=== PATIENT | male | born 1970 | race Caucasian/White ===

== ENCOUNTER 2018-12-08 15:54 | Emergency (ER) | payer SELFPAY ==
[2018-12-08] MEDS ORDERED: CEPHALEXIN 250 MG CAP ONE (18:04)
--- NOTE | 2018-12-08 18:22 | RAD REPORT ---
EXAM DESCRIPTION: CT - Head C Spine Mpr Wo Con - 12/08/2018 5:57 pm CLINICAL HISTORY: Headache, neck pain COMPARISON: None. TECHNIQUE: Computed axial tomography of the head and cervical spine was obtained. Sagittal and coronal reconstruction was performed. All CT scans are performed using dose optimization technique as appropriate and may include automated exposure control or mA/KV adjustment according to patient size. FINDINGS: An intracranial bleed is not seen. The ventricles are normal in caliber. An extra-axial fl uid collection is not noted.Fluid within the visualized sinuses and mastoids is not seen A cervical fracture is not visualized. No dislocation is noted. Congenital fusion C2 and C3. Scoliosis involves the spine. Spinal stenosis is not visualized. IMPRESSION: No acute intracranial abnormality is seen. A cervical fracture is not visualized. If the patient continues to have symptoms to suggest intracra nial /spinal cord/ spinal canal pathology then MRI would be recommended
--- NOTE | 2018-12-08 18:32 | ER ---
Nurse's Notes [facility] Name: Oren Norwood Age: 47 yrs Sex: Male : 1970 Arrival Date: 12/08/2018 Time: 15:58 Bed 26 Private MD: Diagnosis: Dental caries;Headache Presentation: 12/08 16:07 Presenting complaint: Patient states: laisha ear pain, neck pain x 1 week. Transition of sv care: patient was not received from another setting of care. Onset of symptoms was December 01, 2018. Care prior to arrival: None. 16:07 Method Of Arrival: Ambulatory sv 16:07 Acuity: FAVIAN 4 sv 18:20 Risk Assessment: Do you want to hurt yourself or someone else? Patient reports no mg2 desire to harm self or others. Initial Sepsis Screen: Does the patient meet any 2 criteria? No. Patient's initial sepsis screen is negative. Does the patient have a suspected source of infection? No. Patient's initial sepsis screen is negative. Triage Assessment: 16:10 General: Appears in no apparent distress. uncomfortable, Behavior is calm, cooperative, sv appropriate for age. Pain: Complains of pain in back of neck, right ear and left ear. EENT: Reports pain in left ear and right ear. Neuro: Level of Consciousness is awake, alert, obeys commands, Oriented to person, place, time, situation, Gait is steady. Respiratory: Respiratory effort is even, unlabored, Respiratory pattern is regular, symmetrical. Historical: - Allergies: 16:08 No Known Allergies; sv - PMHx: 16:08 None; sv - PSHx: 16:08 Hernia repair; sv - Immunization history:: Flu vaccine status is unknown. - Family history:: not pertinent. - Social history:: Smoking status: unknown. - Ebola Screening: : No symptoms or risks identified at this time. Screenin:34 Abuse screen: Denies threats or abuse. Denies injuries from another. Nutritional mg2 screening: No deficits noted. Tuberculosis screening: No symptoms or risk factors identified. Fall Risk None identified. Assessment: 18:19 General: Appears in no apparent distress. comfortable, Behavior is calm, cooperative. mg2 Pain: Complains of pain in left ear and right ear and back of neck Pain does not radiate. Pain currently is 2 out of 10 on a pain scale. Quality of pain is described as aching, Pain began gradually, Is intermittent. Neuro: Level of Consciousness is awake, alert, obeys commands, Oriented to person, place, time, situation. Cardiovascular: Capillary refill < 3 seconds Patient's skin is warm and dry. Respiratory: Airway is patent Respiratory effort is even, unlabored, Respiratory pattern is regular, symmetrical. GI: No signs and/or symptoms were reported involving the gastrointestinal system. : No signs and/or symptoms were reported regarding the genitourinary system. EENT: Reports pain in left ear and right ear. Derm: Skin is intact, is healthy with good turgor, Skin is pink, warm \T\ dry. normal. Musculoskeletal: Reports pain in back of neck. 18:41 Reassessment: Patient appears in no apparent distress at this time. Patient is alert, ca1 oriented x 3, equal unlabored respirations, skin warm/dry/pink. Vital Signs: 16:08 BP 101 / 68; Pulse 60; Resp 18; Temp 98.3; Pulse Ox 100% ; Height 5 ft. 9 in. (175.26 sv cm); 18:22 BP 109 / 66; Pulse 59; Resp 17; Pulse Ox 100% on R/A; Pain 2/10; mg2 ED Course: 15:58 Patient arrived in ED. rg4 16:08 Triage completed. sv 16:10 Arm band placed on. sv 17:33 Kartik Grissom, RN is Primary Nurse. mg2 17:34 No provider procedures requiring assistance completed. mg2 17:36 Bari Ray MD is Attending Physician. giovani 17:[address] 2 17:[address] completed. Patient tolerated procedure well. Patient moved back from CT. nj 17:57 CT Head C Spine In Process Unspecified. EDMS 18:22 Patient has correct armband on for positive identification. Door closed. mg2 18:41 Patient did not have IV access during this emergency room visit. ca1 Administered Medications: 18:14 Drug: KeFLEX 500 mg Route: PO; mg2 18:40 Follow up: Response: No adverse reaction ca1 Outcome: 18:31 Discharge ordered by . giovani 18:41 Discharged to home ambulatory. ca1 18:41 Condition: stable 18:41 Discharge instructions given to patient, Instructed on discharge instructions, follow up and referral plans. medication usage, Demonstrated understanding of instructions, follow-up care, medications, Prescriptions given X 2. 18:42 Patient left the ED. ca1 Signatures: Dispatcher [employer] EDNiki Tijerina RN RN Bari Underwood MD MD cha Garcia, Rubi 4 Pantera Castaneda Victoria 2 Kartik Grissom RN RN mg2 Radha Franco RN RN ca1 Corrections: (The following items were deleted from the chart) 16:10 16:08 Pulse 60bpm; Resp 18bpm; Pulse Ox 100%; Temp 98.3F; Height 5 ft. 9 in.; sv
--- NOTE | 2018-12-08 18:33 | EDPHYS ---
Physician Documentation [facility] Name: Oren Norwood Age: 47 yrs Sex: Male : 1970 Arrival Date: 12/08/2018 Time: 15:58 Bed 26 Private MD: ED Physician Bari Ray HPI: 12/08 17:46 This 47 yrs old Male presents to ER via Ambulatory with complaints of Ear giovani Pain, Neck Pain, <24hrs Old. 17:46 The patient presents with a fullness. The complaints affect the forehead, right sikh giovani and left sikh. Onset: The symptoms/episode began/occurred 3 day(s) ago. Modifying factors: The symptoms are alleviated by nothing, the symptoms are aggravated by nothing. Associated signs and symptoms: The patient has no apparent associated signs or symptoms. Severity of symptoms: At their worst the symptoms were moderate. The patient has not experienced similar symptoms in the past. Historical: - Allergies: 16:08 No Known Allergies; sv - PMHx: 16:08 None; sv - PSHx: 16:08 Hernia repair; sv - Immunization history:: Flu vaccine status is unknown. - Family history:: not pertinent. - Social history:: Smoking status: unknown. - Ebola Screening: : No symptoms or risks identified at this time. ROS: 17:46 Constitutional: Negative for fever, chills, and weight loss, Eyes: Negative for injury, giovani pain, redness, and discharge, Neck: Negative for injury, pain, and swelling, Cardiovascular: Negative for chest pain, palpitations, and edema, Respiratory: Negative for shortness of breath, cough, wheezing, and pleuritic chest pain, Abdomen/GI: Negative for abdominal pain, nausea, vomiting, diarrhea, and constipation, Back: Negative for injury and pain, : Negative for injury, bleeding, discharge, and swelling, MS/Extremity: Negative for injury and deformity, Skin: Negative for injury, rash, and discoloration, Neuro: Negative for headache, weakness, numbness, tingling, and seizure, Psych: Negative for depression, anxiety, suicide ideation, homicidal ideation, and hallucinations, Allergy/Immunology: Negative for hives, rash, and allergies, Endocrine: Negative for neck swelling, polydipsia, polyuria, polyphagia, and marked weight changes, Hematologic/Lymphatic: Negative for swollen nodes, abnormal bleeding, and unusual bruising. 17:46 ENT: Positive for dental pain, ear pain. Exam: 17:46 Constitutional: This is a well developed, well nourished patient who is awake, alert, giovani and in no acute distress. Head/Face: Normocephalic, atraumatic. Eyes: Pupils equal round and reactive to light, extra-ocular motions intact. Lids and lashes normal. Conjunctiva and sclera are non-icteric and not injected. Cornea within normal limits. Periorbital areas with no swelling, redness, or edema. Neck: Trachea midline, no thyromegaly or masses palpated, and no cervical lymphadenopathy. Supple, full range of motion without nuchal rigidity, or vertebral point tenderness. No Meningismus. Chest/axilla: Normal chest wall appearance and motion. Nontender with no deformity. No lesions are appreciated. Cardiovascular: Regular rate and rhythm with a normal S1 and S2. No gallops, murmurs, or rubs. Normal PMI, no JVD. No pulse deficits. Respiratory: Lungs have equal breath sounds bilaterally, clear to auscultation and percussion. No rales, rhonchi or wheezes noted. No increased work of breathing, no retractions or nasal flaring. Abdomen/GI: Soft, non-tender, with normal bowel sounds. No distension or tympany. No guarding or rebound. No evidence of tenderness throughout. Back: No spinal tenderness. No costovertebral tenderness. Full range of motion. Male : Normal genitalia with no discharge or lesions. Skin: Warm, dry with normal turgor. Normal color with no rashes, no lesions, and no evidence of cellulitis. MS/ Extremity: Pulses equal, no cyanosis. Neurovascular intact. Full, normal range of motion. Neuro: Awake and alert, GCS 15, oriented to person, place, time, and situation. Cranial nerves II-XII grossly intact. Motor strength 5/5 in all extremities. Sensory grossly intact. Cerebellar exam normal. Normal gait. Psych: Awake, alert, with orientation to person, place and time. Behavior, mood, and affect are within normal limits. 17:46 ENT: Mouth: Oral mucosa: normal, pink and intact, moist, Gums: normal with healthy appearance, Dental exam: dental caries, that is mild, specifically in the upper left second molar (#15). Vital Signs: 16:08 BP 101 / 68; Pulse 60; Resp 18; Temp 98.3; Pulse Ox 100% ; Height 5 ft. 9 in. (175.26 sv cm); 18:22 BP 109 / 66; Pulse 59; Resp 17; Pulse Ox 100% on R/A; Pain 2/10; mg2 MDM: 17:36 Patient medically screened. [facility] 17:48 Data reviewed: vital signs, nurses notes, radiologic studies, CT scan. [facility] 12/08 17:46 Order name: CT Head C Spine [facility] Administered Medications: 18:14 Drug: KeFLEX 500 mg Route: PO; mg2 18:40 Follow up: Response: No adverse reaction ca1 Disposition: 12/08/18 18:31 Discharged to Home. Impression: Dental caries, Headache. - Condition is Stable. - Discharge Instructions: Dental Pain, General Headache Without Cause, Dental Pain, [id number], General Headache Without Cause, [id number]. - Prescriptions for Ibuprofen 600 mg Oral Tablet - take 1 tablet by ORAL route every 8 hours As needed take with food; 21 tablet. Keflex 500 mg Oral Capsule - take 1 capsule by ORAL route every 6 hours for 7 days; 28 capsule. - Medication Reconciliation Form, Thank You Letter, Antibiotic Education, Prescription Opioid Use form. - Follow up: Private Physician; When: 2 - 3 days; Reason: Recheck today's complaints, Continuance of care, Re-evaluation by your physician. - Problem is new. - Symptoms have improved. Signatures: Dispatcher [employer] Niki Curry RN RN Bari Ray MD MD cha Gardose, Michele, RN RN mg2 Radha Franco RN RN ca1 Corrections: (The following items were deleted from the chart) 18:42 18:31 12/08/2018 18:31 Discharged to Home. Impression: Dental caries; Headache. ca1 Condition is Stable. Discharge Instructions: Dental Pain, General Headache Without Cause, Dental Pain, [id number], General Headache Without Cause, [id number]. Prescriptions for Ibuprofen 600 mg Oral Tablet - take 1 tablet by ORAL route every 8 hours As needed take with food; 21 tablet, Keflex 500 mg Oral Capsule - take 1 capsule by ORAL route every 6 hours for 7 days; 28 capsule. and Forms are Medication Reconciliation Form, Thank You Letter, Antibiotic Education, Prescription Opioid Use. Follow up: Private Physician; When: 2 - 3 days; Reason: Recheck today's complaints, Continuance of care, Re-evaluation by your physician. Problem is new. Symptoms have improved. giovani
== END 2018-12-08 18:42 | disposition home or self-care (01) ==
LOC: ER 15:54
DX: K02.9 Dental caries, unspecified (principal)
CPT/HCPCS: 70450; 72125; 99284

== ENCOUNTER 2019-03-28 16:00 | Observation (INO) | payer SELFPAY ==
[2019-03-28] MEDS ORDERED: MORPHINE 4 MG/ML SYR ONE (17:10)
[2019-03-28] MEDS ORDERED: ONDANSETRON 4 MG/2 ML VIAL ONE ×2 (17:10→20:10)
[2019-03-28] MEDS ORDERED: NA CHLORIDE 0.9% 1,000 ML ONE ×2 (17:10→19:37)
[2019-03-28 17:16] LABS: Absolute Monocytes 0.6 K/uL (0.1-1.3); Absolute Neutrophil 7.8 K/uL (1.8-8.0); Basophils % 0.1 % (0-1.3); Eosinophils % 0.2 % (0-4.4); Hematocrit 46.2 % (39.6-49.0); Monocytes % 5.9 % (3.3-12.3); RBC Red Blood Cell Count 5.13 M/uL (4.33-5.43)
[2019-03-28 17:28] LABS: BUN Blood Urea Nitrogen 8 mg/dL (7-18); Bicarbonate 30 mmol/L (21-32); Glucose Level 109 mg/dL (74-106); Potassium 4.1 mmol/L (3.5-5.1); Sodium Level 139 mmol/L (136-145)
--- NOTE | 2019-03-28 18:54 | RAD REPORT ---
EXAM DESCRIPTION: CT - Abdomen Pelvis W Contrast - 03/28/2019 6:40 pm CLINICAL HISTORY: Abdominal pain. Vomiting COMPARISON: None. TECHNIQUE: Computed axial tomography of the abdomen and pelvis was obtained. 100 cc Isovue-300 is ad ministered intravenously. Oral contrast was given. All CT scans are performed using dose optimization technique as appropriate and may include automated exposure control or mA/KV adjustment according to patient size. FINDINGS: The liver, spleen, pancreas, adrenals and kidneys appear unremarkable. Appendicolith. Proximal appendix extends inferiorly. The distal appendix extends superior laterally. The appendix is dilated with stranding in the adjacent fat. There is no evidence of diverticulitis Moderate stranding within the central mesentery fat Tiny umbilical hernia Prostate gland is mildly enlarged IMPRESSION: Appendicitis
--- NOTE | 2019-03-28 19:11 | EDPHYS ---
Physician Documentation [facility] Name: Oren Norwood Age: 48 yrs Sex: Male : 1970 Arrival Date: 03/28/2019 Time: 16:02 Bed 19 Private MD: ED Physician Mehrdad Lora HPI: 03/28 18:47 This 48 yrs old Male presents to ER via Ambulatory with complaints of kb Abdominal Pain. 18:47 The patient presents with abdominal pain in the lower abdomen. Onset: The kb symptoms/episode began/occurred yesterday. The symptoms do not radiate. Associated signs and symptoms: Pertinent positives: nausea and vomiting, Pertinent negatives: anorexia, blood in stools, chest pain, constipation, diarrhea, dysuria, fever, headache, hematuria, palpitations, shortness of breath, testicular pain, vomiting blood. The symptoms are described as constant. Modifying factors: The symptoms are alleviated by nothing, the symptoms are aggravated by nothing. Severity of pain: At its worst the pain was moderate in the emergency department the pain is unchanged. The patient has not experienced similar symptoms in the past. The patient has not recently seen a physician. Historical: - Allergies: 16:11 No Known Allergies; hj - PMHx: 16:11 None; hj - PSHx: 16:11 Hernia repair; hj - Immunization history:: Adult Immunizations up to date. - Social history:: Smoking status: Patient/guardian denies using tobacco. - Ebola Screening: : Patient negative for fever greater than or equal to 101.5 degrees Fahrenheit, and additional compatible Ebola Virus Disease symptoms Patient denies exposure to infectious person Patient denies travel to an Ebola-affected area in the 21 days before illness onset No symptoms or risks identified at this time. ROS: 18:45 Constitutional: Negative for fever, chills, and weight loss, ENT: Negative for injury, kb pain, and discharge, Neck: Negative for injury, pain, and swelling, Cardiovascular: Negative for chest pain, palpitations, and edema, Respiratory: Negative for shortness of breath, cough, wheezing, and pleuritic chest pain, Back: Negative for injury and pain, : Negative for injury, bleeding, discharge, and swelling, MS/Extremity: Negative for injury and deformity, Skin: Negative for injury, rash, and discoloration, Neuro: Negative for headache, weakness, numbness, tingling, and seizure. 18:45 Abdomen/GI: Positive for abdominal pain, nausea and vomiting, Negative for diarrhea, constipation, abdominal cramps, abdominal distension, anorexia. Exam: 18:44 Constitutional: This is a well developed, well nourished patient who is awake, alert, kb and in no acute distress. Head/Face: Normocephalic, atraumatic. Chest/axilla: Normal chest wall appearance and motion. Nontender with no deformity. No lesions are appreciated. Cardiovascular: Regular rate and rhythm with a normal S1 and S2. No gallops, murmurs, or rubs. Normal PMI, no JVD. No pulse deficits. Respiratory: Lungs have equal breath sounds bilaterally, clear to auscultation and percussion. No rales, rhonchi or wheezes noted. No increased work of breathing, no retractions or nasal flaring. Back: No spinal tenderness. No costovertebral tenderness. Full range of motion. Skin: Warm, dry with normal turgor. Normal color with no rashes, no lesions, and no evidence of cellulitis. MS/ Extremity: Pulses equal, no cyanosis. Neurovascular intact. Full, normal range of motion. Neuro: Awake and alert, GCS 15, oriented to person, place, time, and situation. Cranial nerves II-XII grossly intact. Motor strength 5/5 in all extremities. Sensory grossly intact. Cerebellar exam normal. Normal gait. 18:44 Abdomen/GI: Inspection: abdomen appears normal, Bowel sounds: normal, in all quadrants, Palpation: soft, in all quadrants, mild abdominal tenderness, in all quadrants, moderate abdominal tenderness, in the right lower quadrant. Vital Signs: 16:11 BP 123 / 73; Pulse 67; Resp 16; Temp 98.3(O); Pulse Ox 100% on R/A; Weight 72.57 kg; hj Height 5 ft. 9 in. (175.26 cm); Pain 8/10; 19:00 BP 108 / 57; Pulse 72; Resp 19; Pulse Ox 100% on R/A; aj 16:11 Body Mass Index 23.63 (72.57 kg, 175.26 cm) MDM: 16:22 Patient medically screened. 18:44 Data reviewed: vital signs, nurses notes. Data interpreted: Pulse oximetry: on room air kb is 100 %. Interpretation: normal. 19:09 Counseling: I had a detailed discussion with the patient and/or guardian regarding: the kb historical points, exam findings, and any diagnostic results supporting the discharge/admit diagnosis, lab results, radiology results, the need for further work-up and treatment in the hospital. 03/28 16:27 Order name: Basic Metabolic Panel; Complete Time: 17:30 kb 03/28 16:27 Order name: CBC with Diff; Complete Time: 17:30 kb 03/28 16:27 Order name: CT Abd/Pelvis - PO and IV Contrast; Complete Time: 19:01 kb 03/28 16:27 Order name: IV Saline Lock; Complete Time: 16:57 kb 03/28 16:27 Order name: Labs collected and sent; Complete Time: 16:57 kb Administered Medications: 16:58 Drug: morphine 4 mg Route: IVP; Site: left antecubital; aj 17:48 Follow up: Response: No adverse reaction; Pain is decreased aj 17:48 Follow up: Response: No adverse reaction; Pain is decreased aj 16:58 Drug: Zofran 4 mg Route: IVP; Site: left antecubital; aj 16:59 Drug: NS 0.9% 1000 ml Route: IV; Rate: 1000 ml; Site: left antecubital; aj 19:27 CANCELLED (Duplicate Order): Mefoxin 2 grams IVPB once over 30 mins; (mix in 100 mL NS) aj 19:28 Drug: NS 0.9% 1000 ml Route: IV; Rate: 125 ml/hr; Site: left antecubital; aj 19:29 Drug: cefOXitin 2 grams Route: IVPB; Infused Over: 30 mins; Site: left antecubital; aj Disposition: 03/28/19 19:10 Hospitalization ordered by Braeden Ryan for Observation. Preliminary diagnosis is Acute appendicitis. - Bed requested for Telemetry/MedSurg (observation). - Status is Observation. aj - Condition is Stable. - Problem is new. - Symptoms are unchanged. UTI on Admission? No Addendum: 03/30/2019 06:57 Co-signature as Attending Physician, Mehrdad Lora MD. r n Signatures: Dispatcher [employer] EDHanane Duarte, LORIE-Qian MELO-Maddie Llanes RN RN Abbi Agrawal RN Mehrdad Foreman MD MD rn Joaquin, Henry RN LONNY Corrections: (The following items were deleted from the chart) 03/28 19:23 19:10 Hospitalization Ordered by Braeden Ryan MD for Observation. Preliminary diagnosis dw is Acute appendicitis. Bed requested for Telemetry/MedSurg (observation). Status is Observation. Condition is Stable. Problem is new. Symptoms are unchanged. UTI on Admission? No. kb 19:27 19:04 Mefoxin 2 grams IVPB once over 30 mins; (mix in 100 mL NS) ordered. lonny gautam 19:51 19:23 03/28/2019 19:10 Hospitalization Ordered by Braeden Ryan MD for Observation. aj Preliminary diagnosis is Acute appendicitis. Bed requested for Telemetry/MedSurg (observation). Status is Observation. Condition is Stable. Problem is new. Symptoms are unchanged. UTI on Admission? No. dw
--- NOTE | 2019-03-28 19:11 | ER ---
Nurse's Notes [facility] Name: Oren Norwood Age: 48 yrs Sex: Male : 1970 Arrival Date: 03/28/2019 Time: 16:02 Bed 19 Private MD: Diagnosis: Acute appendicitis Presentation: 03/28 16:09 Presenting complaint: Patient states: i started having stomach pain since last night, i hj have hernia surgery in the past; reports N/V; reports chills;. Transition of care: patient was not received from another setting of care. Onset of symptoms. Risk Assessment: Do you want to hurt yourself or someone else? Patient reports no desire to harm self or others. Initial Sepsis Screen: Does the patient meet any 2 criteria? No. Patient's initial sepsis screen is negative. Does the patient have a suspected source of infection? No. Patient's initial sepsis screen is negative. Care prior to arrival: None. 16:09 Method Of Arrival: Ambulatory 16:09 Acuity: FAVIAN 3 hj Historical: - Allergies: 16:11 No Known Allergies; hj - PMHx: 16:11 None; hj - PSHx: 16:11 Hernia repair; hj - Immunization history:: Adult Immunizations up to date. - Social history:: Smoking status: Patient/guardian denies using tobacco. - Ebola Screening: : Patient negative for fever greater than or equal to 101.5 degrees Fahrenheit, and additional compatible Ebola Virus Disease symptoms Patient denies exposure to infectious person Patient denies travel to an Ebola-affected area in the 21 days before illness onset No symptoms or risks identified at this time. Screenin:48 Abuse screen: Denies threats or abuse. Denies injuries from another. Nutritional aj screening: No deficits noted. Tuberculosis screening: No symptoms or risk factors identified. Fall Risk None identified. Assessment: 17:30 General: Appears in no apparent distress. comfortable, Behavior is calm, cooperative, aj appropriate for age. Pain: Complains of pain in pelvis. Neuro: Level of Consciousness is awake, alert, obeys commands, Oriented to person, place, time, situation, Appropriate for age. Respiratory: Airway is patent Respiratory effort is even, unlabored, Respiratory pattern is regular, symmetrical. GI: Abdomen is flat, Bowel sounds present X 4 quads. Abd is soft and non tender X 4 quads. Derm: Skin is intact, is healthy with good turgor, Skin is pink, warm \T\ dry. normal. 19:48 Reassessment: Patient appears in no apparent distress at this time. No changes from aj previously documented assessment. Patient and/or family updated on plan of care and expected duration. Pain level reassessed. Patient is alert, oriented x 3, equal unlabored respirations, skin warm/dry/pink. Patient denies pain at this time. Vital Signs: 16:11 BP 123 / 73; Pulse 67; Resp 16; Temp 98.3(O); Pulse Ox 100% on R/A; Weight 72.57 kg; hj Height 5 ft. 9 in. (175.26 cm); Pain 8/10; 19:00 BP 108 / 57; Pulse 72; Resp 19; Pulse Ox 100% on R/A; aj 16:11 Body Mass Index 23.63 (72.57 kg, 175.26 cm) ED Course: 16:02 Patient arrived in ED. mr 16:10 Triage completed. hj 16:12 Arm band placed on left wrist. hj 16:22 Abbi Salmon, RN is Primary Nurse. aj 16:22 Hanane Olson FNP-C is PHCP. kb 16:22 Mehrdad Lora MD is Attending Physician. kb 16:22 Shonda Carrero FNP-C is PHCP. snw 16:50 Missed attempt(s): 22 gauge in right antecubital area. Bleeding controlled, band aid jp3 applied, catheter tip intact. 16:55 Initial lab(s) drawn, by ar, sent to lab. Inserted saline lock: 22 gauge in left jp3 antecubital area, using aseptic technique. Blood collected. 17:06 Basic Metabolic Panel Sent. jp3 17:06 CBC with Diff Sent. jp3 18:43 CT Abd/Pelvis - PO and IV Contrast In Process Unspecified. EDMS 19:10 Braeden Ryan MD is Hospitalizing Provider. kb 19:48 Patient has correct armband on for positive identification. aj 19:48 No provider procedures requiring assistance completed. Patient admitted, IV remains in aj place. intact. Administered Medications: 16:58 Drug: morphine 4 mg Route: IVP; Site: left antecubital; aj 17:48 Follow up: Response: No adverse reaction; Pain is decreased aj 17:48 Follow up: Response: No adverse reaction; Pain is decreased aj 16:58 Drug: Zofran 4 mg Route: IVP; Site: left antecubital; aj 16:59 Drug: NS 0.9% 1000 ml Route: IV; Rate: 1000 ml; Site: left antecubital; aj 19:27 CANCELLED (Duplicate Order): Mefoxin 2 grams IVPB once over 30 mins; (mix in 100 mL NS) aj 19:28 Drug: NS 0.9% 1000 ml Route: IV; Rate: 125 ml/hr; Site: left antecubital; aj 19:29 Drug: cefOXitin 2 grams Route: IVPB; Infused Over: 30 mins; Site: left antecubital; aj Outcome: 19:10 Decision to Hospitalize by Provider. kb 19:48 Admitted to OR accompanied by nurse, family with patient, via stretcher, with chart. aj 19:51 Condition: stable aj 19:51 Instructed on the need for admit. 19:51 Patient left the ED. aj Signatures: Dispatcher [employer] EDHanane Duarte, CAR LUBRICATOR-C CAR LUBRICATOR-Abbi Griffith, RN RN Shonda Altamirano, CAR LUBRICATOR-C CAR LUBRICATOR-Lorena Yin mr Caesar Tellez, RN RN El Arzate jp3 Corrections: (The following items were deleted from the chart) 16:12 16:11 Pulse 67bpm; Resp 16bpm; Pulse Ox 100% RA; Temp 98.3F Oral; 72.57 kg; Height 5 hj ft. 9 in.; BMI: 23.6; Pain 8/10; hj
[2019-03-28] MEDS ORDERED: CEFOXITIN SODIUM 1 GM/VIAL ONE (19:36)
[2019-03-28] MEDS ORDERED: METRONIDAZOLE 500mg IVPB 500 MG/100 ML BAG IV ONE (19:37)
[2019-03-28] MEDS ORDERED: NA CHLORIDE 0.9% 100 ML IV ONE (19:37)
[2019-03-28] MEDS ORDERED: PROPOFOL 200 MG/20 ML VIAL IV ONE (20:06)
[2019-03-28] MEDS ORDERED: ROCURONIUM 50 MG/5 ML VIAL IV ONE (20:07)
[2019-03-28] MEDS ORDERED: FENTANYL CITR 100 MCG/2 ML ONE (20:07)
[2019-03-28] MEDS ORDERED: LIDOCAINE 2% MPF 5 ML VIAL ONE (20:07)
[2019-03-28] MEDS ORDERED: BUPIVACAINE 0.5% PF 10 ML VIAL ONE (20:10)
[2019-03-28] MEDS ORDERED: DEXAMETHASONE 10 MG/ML VIAL ONE (20:10)
[2019-03-28] MEDS ORDERED: KETOROLAC 30 MG/ML INJ ONE (20:10)
[2019-03-28] MEDS ORDERED: SUCCINYLCHOLINE 20 MG/ML (10 ML) IV ONE (20:18)
[2019-03-28] MEDS ORDERED: ONDANSETRON 4 MG/2 ML VIAL IV PRN ×2 (20:28→21:02)
[2019-03-28] MEDS ORDERED: ACETAMINOPHEN 500 MG TAB PO PRN (20:28)
[2019-03-28] MEDS: NA CHLORIDE 0.9% 1,000 ML IV SCH (20:28)
[2019-03-28] MEDS ORDERED: MORPHINE 4 MG/ML SYR IV PRN (20:28)
[2019-03-28] MEDS ORDERED: NEOSTIGMINE 1 MG/ML -10 ML VIAL ONE (20:48)
[2019-03-28] MEDS ORDERED: GLYCOPYRROLATE 0.2 MG/ML SYR ONE (20:48)
--- NOTE | 2019-03-28 20:52 | P.OP ---
Preoperative diagnosis: Acute Appendicitis Postoperative diagnosis: same Primary procedure: Lap Appy Anesthesia: General Estimated blood loss: min Specimen: Appy Findings: as above Complications: None Transferred to: Recovery Room Condition: Good
[2019-03-28] MEDS ORDERED: HYDROMORPHONE HCL 1 MG/ML INJ IV PRN (21:02)
[2019-03-28] MEDS ORDERED: HYDROCODONE/APAP 7.5/325 MG TAB PO PRN (21:02)
[2019-03-29] MEDS ORDERED: CEFOXITIN SODIUM 1 GM/VIAL ONE (01:28)
[2019-03-29] MEDS ORDERED: NA CHLORIDE 0.9% 100 ML IV ONE ×2 (01:33→06:47)
[2019-03-29 01:37] VITALS: BMI 23.6
[2019-03-29 02:14] VITALS: O2SAT 99
[2019-03-29] MEDS: CEFOXITIN SODIUM 1 GM/VIAL IVPB SCH ×2 (02:46→06:39)
--- NOTE | 2019-03-29 03:55 | PREOPHP ---
Date of Admission: 03/28/2019 Chief Complaint: Abdominal pain. History Of Present Illness: The patient is a 48-year-old gentleman, who comes in with 1-day history of periumbilical pain localized into the right lower quadrant, associated with nausea and vomiting, o ccasional diarrhea and constipation. No blood in the stool. No dysuria or hematuria. No sore throa t, runny nose, cough, headaches, or dizziness. No chest pain. No fever or chills. No anorexia. Review of Systems: Otherwise, unremarkable. Past Medical History: Negative. Past Surgical History: Bilateral inguinal hernia surgery. Allergies: NO ALLERGIES. Social History: He denies smoking or drinking. Family History: Noncontributory. Physical Examination: Vital Signs: Stable. He is currently afebrile. General: He is awake, alert, orient x3. Head and Neck: Cranial nerves 2 through 12 grossly within normal limits. No neck masses. No JVD. Throat clear. Neck is supple. Chest: Clear. Heart: S1, S2. Abdomen: Soft, nondistended. Positive Rovsing sign. Positive right lower quadrant tenderness with rebound. No rigidity or guarding. Extremities: Adequately perfused. Nontender. Neuro: Nonfocal. Diagnostic Data: CT of the abdomen and pelvis is consistent with acute appendicitis with appendicoli th as well as inflammation. There may be some mesenteric stranding as well. White count is normal; however, he does have a left shift. Electrolytes are within normal limits. Assessment: Acute appendicitis. Plan: Admit n.p.o., IV fluid, IV antibiotic, to the OR for lap appy possible open. The patient unde rstands the risks, benefits, and alternatives and agrees to procedure. /MODL Voice ID: [id number]
[2019-03-29 04:17] LABS: Absolute Lymphocytes (CBC) 0.7 K/uL (0.7-4.9); Absolute Monocytes 0.2 K/uL (0.1-1.3); Absolute Neutrophil 9.4 K/uL (1.8-8.0); Basophils % 0.1 % (0-1.3); Lymphocytes % 6.4 % (15.3-44.8); MPV 9.2 fL (7.6-11.3); Monocytes % 2.1 % (3.3-12.3); RBC Red Blood Cell Count 4.14 M/uL (4.33-5.43)
[2019-03-29 04:24] LABS: BUN Blood Urea Nitrogen 7 mg/dL (7-18); Bicarbonate 27 mmol/L (21-32); Glucose Level 142 mg/dL (74-106); Potassium 4.7 mmol/L (3.5-5.1); Sodium Level 142 mmol/L (136-145)
[2019-03-29 05:34] LABS: Blood Morphology Comment NOT SEEN (NOT SEEN); Platelet Estimate ADEQ
--- NOTE | 2019-03-29 06:24 | OP ---
Date of Procedure: 03/28/2019 Surgeon: Braeden Ryan MD Preoperative Diagnosis: Acute appendicitis. Postoperative Diagnoses: Acute suppurative appendicitis with adhesions in the right lower quadrant. Procedure Performed: Laparoscopic appendectomy and lysis of adhesions. Estimated Blood Loss: Minimal. Specimen: Appendix. Findings: As above. Anesthesia: General. Complications: None. Disposition: The patient tolerated the procedure in stable condition, taken to Recovery in good gene ral condition. Procedure In Detail: The patient was brought to the OR and placed in supine position. General anest hesia was begun. The patient was prepped and draped in the usual sterile fashion. Marcaine 0.5% was infiltrated locally. A 15-blade was used to make a 1 cm supraumbilical midline incision. Subcutane ous tissues divided. The fascia was identified and divided. A #1 Vicryl stay suture was placed. Pe ritoneal cavity was entered with blunt dissection. A 12-mm trocar was placed into the peritoneal cav ity under direct vision. Pneumoperitoneum was established and then two 5 mm trocars were placed, 1 i n the suprapubic region and 1 in the left lower quadrant. Laparoscopy revealed adhesions covering th e cecum on the right lower quadrant. LigaSure was used to do a lysis of omental adhesions so the cec um could be seen, and this was done all along the right paracolic gutter and after that the appendix was identified. The distal half of the appendix was suppurative. It was pointed upward and the prox imal part was pointed downward. Subsequently, base of the appendix and mesoappendix were clearly lópez ntified. Endo-NELI stapling device was used to divide both structures. There was bleeding noted from the mesoappendix or from the appendiceal artery. This was grasped with a clamp and then vascular cl ips were placed with no difficulty in controlling the bleeding. Subsequently, the appendix was retri eved through the umbilicus via an EndoCatch bag. Right lower quadrant and pelvis were thoroughly irr igated. Effluent was clear. No evidence of bleeding or bowel injury appreciated. Subsequently, all trocars were removed under direct vision. Stay sutures were tied to each other to approximate the f ascial defect. Subcutaneous wounds were irrigated. Bleeding controlled with cautery. 3-0 chromic u sed to approximate the subcutaneous tissues and elizabeth to close the skin. Sterile dressing was appl ied. The patient was awakened and taken to Recovery in good general condition. CLARITA/OSVALDO Voice ID: [id number] Report ID: [id number]
[2019-03-29] MEDS: NA CHLORIDE 0.9% 1,000 ML IV SCH (09:49)
[2019-03-29] MEDS ORDERED: CEFOXITIN/SWI 1gm 1 GM/10 ML SYR IV SCH (12:00)
[2019-03-29 12:37] VITALS: TEMP 97.1
[2019-03-29 15:02] VITALS: BP 94/56
--- NOTE | 2019-03-30 04:39 | DS ---
Date of Discharge: 03/29/2019 Admitting Diagnosis: Acute appendicitis. Discharge Diagnosis: Acute appendicitis. Procedure Performed: Laparoscopic appendectomy. Hospital Course: The patient is a 48-year-old gentleman who underwent the aforementioned procedure. Postoperatively, he is tolerating diet, ambulating, pain controlled on p.o. pain medication, and afe brile. Therefore, the patient will be discharged to home. Disposition: Home. Condition: Stable. Discharge Instructions: Resume home medications and diet. Activity as tolerated. No heavy lifting. Remove outer dressing in a.m. Shower. Keep wound clean and dry. Follow up in my office in one we idalia, call for appointment. Tylenol No. 3 one tablet p.o. q.4 p.r.n. pain, Cipro 500 mg p.o. q.12, Fla gyl 500 mg p.o. q.6. /MODL Voice ID: [id number] Report ID: [id number]
== END 2019-03-29 14:42 | disposition home or self-care (01) ==
LOC: ER 16:00 → ERHOLD 19:19 → 4TH 21:58
PROVIDERS: ADMIT Surgery; ATTEND Surgery
PROC: 0DTJ4ZZ Resection of Appendix, Percutaneous Endoscopic Approach (ICD-10-PCS; principal; 2019-03-28 20:00)
DX: K35.80 Unspecified acute appendicitis (principal); K66.0 Peritoneal adhesions (postprocedural) (postinfection)
CPT/HCPCS: 36415; 74177; 80048; 85025; 88304; 96374; 96375; 99285; G0378; J0330; J0694; J1100; J2405; J2704; J2710; J3010; J7030; Q9967

== ENCOUNTER 2019-05-11 16:51 | Emergency (ER) | payer SELFPAY ==
[2019-05-11] MEDS ORDERED: NA CHLORIDE 0.9% 1,000 ML ONE (18:00)
[2019-05-11 18:10] LABS: Absolute Lymphocytes (CBC) 2.3 K/uL (0.7-4.9); Basophils % 1.6 % (0-1.3); Eosinophils % 18.4 % (0-4.4); Hematocrit 44.8 % (39.6-49.0); Lymphocytes % 20.2 % (15.3-44.8); MPV 9.6 fL (7.6-11.3); Monocytes % 3.1 % (3.3-12.3); RBC Red Blood Cell Count 4.85 M/uL (4.33-5.43)
[2019-05-11 18:19] LABS: Urine RBC NONE SEEN /HPF (NONE SEEN)
[2019-05-11 18:20] LABS: Urine Bacteria NONE SEEN /HPF (NONE SEEN); Urine Culture Reflex Order NOT NEEDED
[2019-05-11 18:36] LABS: ALT/SGPT 111 U/L (12-78); AST/SGOT 36 U/L (15-37); Albumin 4.1 g/dL (3.4-5.0); Alkaline Phosphatase 125 U/L (45-117); BUN Blood Urea Nitrogen 11 mg/dL (7-18); Bicarbonate 29 mmol/L (21-32); Bilirubin Direct < 0.1 mg/dL (0-0.2); Bilirubin Total 0.4 mg/dL (0.2-1.0); Glucose Level 156 mg/dL (74-106); Lipase 183 U/L (73-393); Potassium 4.1 mmol/L (3.5-5.1); Protein, Total 7.4 g/dL (6.4-8.2); Sodium Level 143 mmol/L (136-145)
[2019-05-11 20:04] LABS: Blood Morphology Comment NOT SEEN (NOT SEEN); Platelet Estimate ADEQ; Urine White Blood Cell Casts OK
--- NOTE | 2019-05-11 20:16 | RAD REPORT ---
EXAM DESCRIPTION: CTAbdomen Pelvis W Contrast - 05/11/2019 8:01 pm CLINICAL HISTORY: Abdominal pain. stump appendicitis COMPARISON: <Comparisons> TECHNIQUE: Biphasic CT imaging of the abdomen and pelvis was performed with 100 ml non-ionic IV cont rast. All CT scans are performed using dose optimization technique as appropriate and may include automated exposure control or mA/KV adjustment according to patient size. FINDINGS: The lung bases are clear. The liver, spleen, pancreas, adrenal glands and kidneys are within normal limits. No bowel obstruction, free air, free fluid or abscess. Moderate inflammation is seen involving the fa t of the small bowel mesentery with several prominent lymph nodes present. Appendectomy noted. No fin ding to indicate stump appendicitis. No evidence of significant lymphadenopathy. No suspicious bony findings. IMPRESSION: Moderate mesenteritis is suspected.
--- NOTE | 2019-05-11 20:39 | EDPHYS ---
Physician Documentation [facility] Name: Oren Norwood Age: 48 yrs Sex: Male : 1970 Arrival Date: 05/11/2019 Time: 16:53 Bed 24 Private MD: None, None ED Physician Ruben Shepherd HPI: 05/11 17:45 This 48 yrs old Male presents to ER via Ambulatory with complaints of Post cp Surgical Pain. 17:45 The patient presents with abdominal pain. cp 17:45 Onset: The symptoms/episode began/occurred 2 day(s) ago. The symptoms do not radiate. cp Associated signs and symptoms: Pertinent negatives: blood in stools, chest pain, constipation, diarrhea, dysuria, fever, testicular pain, vomiting. The symptoms are described as intermittent, multiple sides of abdomen but worse RLQ. Patient reports having appendectomy last month and history of bilateral inguinal hernia repairs. Historical: - Allergies: 17:01 No Known Allergies; aa5 - PMHx: 17:01 None; aa5 - PSHx: 17:01 Hernia repair; Appendectomy; aa5 - Immunization history:: Adult Immunizations unknown. - Social history:: Smoking status: Patient/guardian denies using tobacco. - Ebola Screening: : No symptoms or risks identified at this time. ROS: 18:00 Constitutional: Negative for body aches, chills, fever, poor PO intake. cp 18:00 Eyes: Negative for injury, pain, redness, and discharge. cp 18:00 ENT: Negative for drainage from ear(s), ear pain, sore throat, difficulty swallowing, difficulty handling secretions. 18:00 Cardiovascular: Negative for chest pain, edema, palpitations. 18:00 Respiratory: Negative for cough, shortness of breath, wheezing. 18:00 Abdomen/GI: Positive for abdominal pain, Negative for vomiting, diarrhea, constipation, anorexia, black/tarry stool, rectal bleeding. 18:00 Back: Negative for pain at rest, pain with movement, radiated pain. 18:00 : Negative for urinary symptoms, hematuria, flank pain, testicular pain 18:00 Skin: Negative for rash. 18:00 Neuro: Negative for altered mental status, headache, weakness. 18:00 All other systems are negative. Exam: 18:05 Constitutional: The patient appears in no acute distress, alert, awake, cp non-diaphoretic, non-toxic, well developed, well nourished. 18:05 Head/Face: Normocephalic, atraumatic. cp 18:05 Eyes: Periorbital structures: appear normal, Conjunctiva: normal, no exudate, no injection, Sclera: no appreciated abnormality, Lids and lashes: appear normal, bilaterally. 18:05 ENT: External ear(s): are unremarkable, Nose: is normal, Mouth: Lips: moist, Oral mucosa: pink and intact, moist, Posterior pharynx: is normal, airway is patent, no erythema, no exudate. 18:05 Neck: ROM/movement: is normal, is supple, without pain, no range of motions limitations, no nuchal rigidity. 18:05 Chest/axilla: Inspection: normal, Palpation: is normal, no crepitus, no tenderness. 18:05 Cardiovascular: Rate: normal, Rhythm: regular, Edema: is not appreciated, JVD: is not appreciated. 18:05 Respiratory: the patient does not display signs of respiratory distress, Respirations: normal, no use of accessory muscles, no retractions, no splinting, no tachypnea, Breath sounds: are clear throughout, no decreased breath sounds, no stridor, no wheezing. 18:05 Abdomen/GI: Inspection: scar(s), are noted in the umbilical area, Bowel sounds: active, all quadrants, Palpation: soft, in all quadrants, mild abdominal tenderness, in the right lower quadrant, rebound tenderness, is not appreciated, voluntary guarding, is elicited in the right lower quadrant, involuntary guarding, is not appreciated, Hernia: not appreciated. 18:05 Back: pain, is absent, ROM is normal. 18:05 Skin: no rash present. Vital Signs: 17:02 BP 111 / 75; Pulse 77; Resp 16 S; Temp 98.5(TE); Pulse Ox 98% on R/A; Weight 72.57 kg aa5 (R); Height 5 ft. 9 in. (175.26 cm) (R); Pain 6/10; 18:33 BP 115 / 75; Pulse 78; Resp 18; Pulse Ox 98% on R/A; mg2 17:02 Body Mass Index 23.63 (72.57 kg, 175.26 cm) aa5 MDM: 17:29 Patient medically screened. cp 18:00 Differential diagnosis: bowel obstruction, gastritis, non-specific abd pain, cp Ureterolithiasis, urinary tract infection, stump appendicitis, abscess, mesenteritis. 20:37 Data reviewed: vital signs, nurses notes, lab test result(s), radiologic studies, CT cp scan, I have discussed the patient's presentation/case with the attending Emergency Department Physician; and as a result, I will discharge patient. 20:37 Counseling: I had a detailed discussion with the patient and/or guardian regarding: the cp historical points, exam findings, and any diagnostic results supporting the discharge/admit diagnosis, lab results, radiology results, to return to the emergency department if symptoms worsen or persist or if there are any questions or concerns that arise at home. Response to treatment: the patient's symptoms have markedly improved after treatment, and as a result, I will discharge patient. ED course: VSS. Pain improved. Will discharge to home for continued monitoring. 05/11 17:37 Order name: Basic Metabolic Panel 05/11 17:37 Order name: CBC with Diff 05/11 17:37 Order name: Creatinine for Radiology; Complete Time: 18:50 05/11 17:37 Order name: Hepatic Function; Complete Time: 18:50 05/11 17:37 Order name: Lipase; Complete Time: 18:50 05/11 17:37 Order name: Urine Microscopic Only; Complete Time: 18:50 05/11 17:37 Order name: CT Abd/Pelvis - PO and IV Contrast; Complete Time: 20:25 05/11 17:38 Order name: Basic Metabolic Panel; Complete Time: 18:50 EDMS 05/11 17:38 Order name: CBC with Automated Diff; Complete Time: 20:25 EDMD 05/11 20:25 Interpretation: Normal except: WBC 11.5; MN% 3.1; EOSINOPHIL % 18.4; BASO% 1.6; EOSA cp 2.1. 05/11 18:15 Order name: CBC Smear Scan; Complete Time: 20:25 EDMD 05/11 17:37 Order name: IV Saline Lock; Complete Time: 17:43 cp 05/11 17:37 Order name: Labs collected and sent; Complete Time: 17:43 05/11 17:37 Order name: Urine Dipstick-Ancillary (obtain specimen); Complete Time: 17:43 cp Administered Medications: 17:52 Drug: NS 0.9% 1000 ml Route: IV; Rate: 1 bolus; Site: right antecubital; mg2 21:31 Follow up: Response: No adverse reaction; IV Status: Completed infusion; IV Intake: mg2 1000ml 20:44 Drug: TORadol 30 mg Route: IVP; Site: right antecubital; mg2 21:30 Follow up: Response: No adverse reaction; Marked relief of symptoms mg2 20:44 Drug: metroNIDAZOLE 500 mg Volume: 100 ml; Route: IVPB; Infused Over: 30 mins; Site: mg2 right antecubital; 21:30 Follow up: Response: No adverse reaction; IV Status: Completed infusion mg2 20:44 Drug: Cipro 500 mg Route: PO; mg2 21:30 Follow up: Response: No adverse reaction mg2 Disposition: 05/12 18:49 Co-signature as Attending Physician, Ruben Shepherd MD. Disposition: 05/11/19 20:38 Discharged to Home. Impression: Mesenteritis. - Condition is Stable. - Discharge Instructions: Abdominal Pain, Adult. - Prescriptions for Ibuprofen 800 mg Oral Tablet - take 1 tablet by ORAL route every 8 hours As needed take with food; 30 tablet. Cipro 500 mg Oral Tablet - take 1 tablet by ORAL route every 12 hours for 10 days; 20 tablet. Metronidazole 500 mg Oral Tablet - take 1 tablet by ORAL route every 8 hours; 30 tablet. - Medication Reconciliation Form, Thank You Letter, Antibiotic Education, Prescription Opioid Use form. - Follow up: Mingo Corrales MD; When: 2 - 3 days; Reason: Recheck today's complaints. - Problem is new. - Symptoms have improved. Signatures: Dispatcher [facility] Eli Wolff, RN RN aa5 Bari Escobar PA PA Ruben Shepherd MD MD Kartik Grissom RN RN mg2 Corrections: (The following items were deleted from the chart) 05/11 20:25 18:50 Normal except: WBC 11.5; MN% 3.1; EOSINOPHIL % 18.4; BASO% 1.6. cp cp 21:32 20:38 05/11/2019 20:38 Discharged to Home. Impression: Mesenteritis. Condition is mg2 Stable. Forms are Medication Reconciliation Form, Thank You Letter, Antibiotic Education, Prescription Opioid Use. Follow up: Mingo Corrales; When: 2 - 3 days; Reason: Recheck today's complaints. Problem is new. Symptoms have improved. cp
--- NOTE | 2019-05-11 20:39 | ER ---
Nurse's Notes [facility] Name: Oren Norwood Age: 48 yrs Sex: Male : 1970 Arrival Date: 05/11/2019 Time: 16:53 Bed 24 Private MD: None, None Diagnosis: Mesenteritis Presentation: 05/11 17:00 Presenting complaint: Patient states: RLQ that began 2 days ago. Pt states "I had my aa5 appendix taken out March 28 and I also have a hernia mesh so I don't know what is giving me the pain". Transition of care: patient was not received from another setting of care. Onset of symptoms was April 2019. Risk Assessment: Do you want to hurt yourself or someone else? Patient reports no desire to harm self or others. Initial Sepsis Screen: Does the patient meet any 2 criteria? No. Patient's initial sepsis screen is negative. Does the patient have a suspected source of infection? No. Patient's initial sepsis screen is negative. Care prior to arrival: None. 17:00 Method Of Arrival: Ambulatory aa5 17:00 Acuity: FAVIAN 3 aa5 Historical: - Allergies: 17:01 No Known Allergies; aa5 - PMHx: 17:01 None; aa5 - PSHx: 17:01 Hernia repair; Appendectomy; aa5 - Immunization history:: Adult Immunizations unknown. - Social history:: Smoking status: Patient/guardian denies using tobacco. - Ebola Screening: : No symptoms or risks identified at this time. Screenin:10 Abuse screen: Denies threats or abuse. Denies injuries from another. Nutritional mg2 screening: No deficits noted. Tuberculosis screening: No symptoms or risk factors identified. Fall Risk None identified. Assessment: 17:16 General: Appears in no apparent distress. comfortable, Behavior is calm, cooperative. mg2 Pain: Complains of pain in abdomen Pain currently is 3 out of 10 on a pain scale. Quality of pain is described as aching, Pain began gradually, 1 day ago. Neuro: Level of Consciousness is awake, alert, obeys commands, Oriented to person, place, time, situation. Cardiovascular: Capillary refill < 3 seconds Patient's skin is warm and dry. Respiratory: Airway is patent Respiratory effort is even, unlabored, Respiratory pattern is regular, symmetrical. GI: Reports lower abdominal pain. : No signs and/or symptoms were reported regarding the genitourinary system. EENT: No deficits noted. Derm: Skin is intact, is healthy with good turgor, Skin is pink, warm \\T\\ dry. normal. Musculoskeletal: Circulation, motion, and sensation intact. Capillary refill < 3 seconds. 18:08 Reassessment: Oral Contrast completed. Informed superintendent operations division. mg2 21:31 Reassessment: Patient states feeling better. mg2 Vital Signs: 17:02 BP 111 / 75; Pulse 77; Resp 16 S; Temp 98.5(TE); Pulse Ox 98% on R/A; Weight 72.57 kg aa5 (R); Height 5 ft. 9 in. (175.26 cm) (R); Pain 6/10; 18:33 BP 115 / 75; Pulse 78; Resp 18; Pulse Ox 98% on R/A; mg2 17:02 Body Mass Index 23.63 (72.57 kg, 175.26 cm) aa5 ED Course: 16:53 Patient arrived in ED. dp 16:55 None, None is Private Physician. dp 17:00 Arm band placed on. aa5 17:01 Triage completed. aa5 17:09 Kartik Grissom, RN is Primary Nurse. mg2 17:17 Patient has correct armband on for positive identification. mg2 17:24 No provider procedures requiring assistance completed. mg2 17:27 Bari Escobar PA is PHCP. cp 17:27 Ruben Shepherd MD is Attending Physician. cp 17:46 Inserted saline lock: 20 gauge in right antecubital area, using aseptic technique. ca1 Blood collected. 20:02 CT Abd/Pelvis - PO and IV Contrast In Process Unspecified. EDMS 20:38 Mingo Corrales MD is Referral Physician. cp 21:31 IV discontinued, intact, bleeding controlled, No redness/swelling at site. Pressure mg2 dressing applied. Administered Medications: 17:52 Drug: NS 0.9% 1000 ml Route: IV; Rate: 1 bolus; Site: right antecubital; mg2 21:31 Follow up: Response: No adverse reaction; IV Status: Completed infusion; IV Intake: mg2 1000ml 20:44 Drug: TORadol 30 mg Route: IVP; Site: right antecubital; mg2 21:30 Follow up: Response: No adverse reaction; Marked relief of symptoms mg2 20:44 Drug: metroNIDAZOLE 500 mg Volume: 100 ml; Route: IVPB; Infused Over: 30 mins; Site: mg2 right antecubital; 21:30 Follow up: Response: No adverse reaction; IV Status: Completed infusion mg2 20:44 Drug: Cipro 500 mg Route: PO; mg2 21:30 Follow up: Response: No adverse reaction mg2 Intake: 21:31 IV: 1000ml; Total: 1000ml. mg2 Outcome: 20:38 Discharge ordered by . tracy 21:31 Discharged to home ambulatory. mg2 21:31 Condition: stable 21:31 Discharge instructions given to patient, Instructed on discharge instructions, follow up and referral plans. Demonstrated understanding of instructions, follow-up care, medications, Prescriptions given X 3. 21:32 Patient left the ED. mg2 Signatures: Dispatcher [employer] EDMS Eli Wolff RN RN aa5 Bari Escobar PA PA Kartik Garcia RN RN mg2 Radha Franco RN RN ca1 Nikita aYng Corrections: (The following items were deleted from the chart) 17:05 17:02 BP 111 / 75; Pulse 77bpm; Resp 16bpm; Spontaneous; Pulse Ox 98% RA; 72.57 kg aa5 Reported; Height 5 ft. 9 in. Reported; BMI: 23.6; Pain 6/10; aa5
[2019-05-11] MEDS ORDERED: KETOROLAC 30 MG/ML INJ ONE (20:48)
[2019-05-11] MEDS ORDERED: CIPROFLOXACIN HCL 500 MG TAB ONE (20:48)
[2019-05-11] MEDS ORDERED: METRONIDAZOLE 500mg IVPB 500 MG/100 ML BAG IV ONE (20:48)
[2019-05-11 23:19] VITALS: TEMP 98.5; O2SAT 98
[2019-05-11 23:21] VITALS: BP 115/75
== END 2019-05-11 21:32 | disposition home or self-care (01) ==
LOC: ER 16:51
DX: K65.4 Sclerosing mesenteritis (principal)
CPT/HCPCS: 36415; 74177; 80048; 80076; 81015; 83690; 85025; 96361; 96365; 96375; 99284; J7030; Q9967

== ENCOUNTER 2019-05-21 13:29 | Emergency (ER) | payer SELFPAY ==
--- NOTE | 2019-05-21 14:30 | ER ---
Nurse's Notes [facility] Name: Oren Norwood Age: 48 yrs Sex: Male : 1970 Arrival Date: 05/21/2019 Time: 13:33 Bed 19 Private MD: Diagnosis: Low back pain;Sciatica, right side Presentation: 05/21 13:36 Presenting complaint: Patient states: Low back pain for 2 days. Chronic back pain that aj got worse suddenly. Transition of care: patient was not received from another setting of care. Onset of symptoms was May 20, 2019. Risk Assessment: Do you want to hurt yourself or someone else? Patient reports no desire to harm self or others. Initial Sepsis Screen: Does the patient meet any 2 criteria? No. Patient's initial sepsis screen is negative. Does the patient have a suspected source of infection? No. Patient's initial sepsis screen is negative. Note Patient drove himself to the hospital. Care prior to arrival: None. 13:36 Method Of Arrival: Wheelchair aj 13:36 Acuity: FAVIAN 4 aj Triage Assessment: 13:37 General: Appears in no apparent distress. comfortable, Behavior is calm, cooperative, aj appropriate for age. Pain: Complains of pain in low back area. Neuro: Level of Consciousness is awake, alert, obeys commands, Oriented to person, place, time, situation, Appropriate for age. Respiratory: Airway is patent Respiratory effort is even, unlabored, Respiratory pattern is regular, symmetrical. Derm: Skin is intact, is healthy with good turgor, Skin is pink, warm \\T\\ dry. normal. Musculoskeletal: Circulation, motion, and sensation intact. Range of motion: intact in all extremities, Reports pain in low back area. Historical: - Allergies: 13:37 No Known Allergies; aj - PMHx: 13:37 chronic back pain; aj - PSHx: 13:37 Hernia repair; Appendectomy; aj - Immunization history:: Adult Immunizations up to date. - Social history:: Smoking status: Patient/guardian denies using tobacco. - Ebola Screening: : Patient negative for fever greater than or equal to 101.5 degrees Fahrenheit, and additional compatible Ebola Virus Disease symptoms Patient denies exposure to infectious person Patient denies travel to an Ebola-affected area in the 21 days before illness onset No symptoms or risks identified at this time. Screenin:30 Abuse screen: Denies threats or abuse. Denies injuries from another. Nutritional sg screening: No deficits noted. Tuberculosis screening: No symptoms or risk factors identified. Never had TB. Fall Risk None identified. Assessment: 14:30 General: Appears in no apparent distress. well groomed, well developed, well nourished, sg Behavior is calm, cooperative, appropriate for age. Pain: Complains of pain in low back area Pain currently is 9 out of 10 on a pain scale. Quality of pain is described as aching. Neuro: Level of Consciousness is awake, alert, obeys commands, Oriented to person, place, time, situation, Computer Installation Engineer are equal bilaterally Moves all extremities. Speech is normal, Facial symmetry appears normal. Cardiovascular: Patient's skin is warm and dry. Chest pain is denied. Respiratory: Airway is patent Respiratory effort is even, unlabored, Respiratory pattern is regular, symmetrical. GI: Abdomen is flat, non-distended. : No signs and/or symptoms were reported regarding the genitourinary system. EENT: No signs and/or symptoms were reported regarding the EENT system. Derm: Skin is pink, warm \\T\\ dry. Musculoskeletal: Circulation, motion, and sensation intact. Range of motion: intact in all extremities. Vital Signs: 13:37 BP 109 / 54; Pulse 67; Resp 19; Temp 98.2; Pulse Ox 96% on R/A; Weight 72.57 kg; Height aj 5 ft. 9 in. (175.26 cm); 14:30 BP 110 / 52; Pulse 68; Resp 17; Pulse Ox 98% on R/A; Pain 6/10; sg 13:37 Body Mass Index 23.63 (72.57 kg, 175.26 cm) aj ED Course: 13:33 Patient arrived in ED. cl3 13:37 Triage completed. aj 13:37 Arm band placed on left wrist. Patient placed in an exam room. aj 13:45 Patient has correct armband on for positive identification. Pulse ox on. NIBP on. Head sg of bed lowered. 14:00 Shonda Carrero FNP-C is PHCP. snw 14:00 Dannie Kang MD is Attending Physician. snw 14:30 Donovan Spangler RN is Primary Nurse. sg 14:30 No provider procedures requiring assistance completed. Patient did not have IV access sg during this emergency room visit. Administered Medications: 14:30 Drug: TORadol 30 mg Route: IM; Site: right ventrogluteal; sg 14:50 Follow up: Response: No adverse reaction; Pain is decreased; reports decrease in " sg pinching" sensation Intake: Outcome: 14:30 Discharge ordered by . snrenetta 14:40 Discharged to home ambulatory, via wheelchair, with family. sg 14:40 Condition: good 14:40 Discharge instructions given to patient, Instructed on discharge instructions, follow up and referral plans. medication usage, safety practices, Demonstrated understanding of instructions, follow-up care, medications, Prescriptions given X 2. 14:51 Patient left the ED. sg Signatures: Donovan Spangler RN RN Abbi Mondragon RN RN Shonda Altamirano, APARTMENT MAINTENANCE-C APARTMENT MAINTENANCE-Csnw Torrey Lara cl3 Corrections: (The following items were deleted from the chart) 14:58 14:30 BP 110 / 52; Pulse 68bpm; Resp 17bpm; Pulse Ox 98% RA; sg sg
--- NOTE | 2019-05-21 14:31 | EDPHYS ---
Physician Documentation [facility] Name: Oren Norwood Age: 48 yrs Sex: Male : 1970 Arrival Date: 05/21/2019 Time: 13:33 Bed 19 Private MD: ED Physician Dannie Kang HPI: 05/21 14:33 This 48 yrs old Male presents to ER via Wheelchair with complaints of Back snw Pain. 14:33 The patient presents with pain that is chronic, with no known mechanism of injury. The snw symptoms are located in the low back. Onset: The symptoms/episode began/occurred suddenly, last night. The pain does not radiate. Associated signs and symptoms: The patient has no apparent associated signs or symptoms. The problem was sustained from unknown cause. Modifying factors: The patient symptoms are alleviated by nothing, the patient symptoms are aggravated by movement, walking. Severity of symptoms: At their worst the symptoms were moderate, in the emergency department the symptoms have improved, moderately. The patient has experienced similar episodes in the past, chronically. The patient has not recently seen a physician, and does not have an established primary care provider, just moved to area. Historical: - Allergies: 13:37 No Known Allergies; aj - PMHx: 13:37 chronic back pain; aj - PSHx: 13:37 Hernia repair; Appendectomy; aj - Immunization history:: Adult Immunizations up to date. - Social history:: Smoking status: Patient/guardian denies using tobacco. - Ebola Screening: : Patient negative for fever greater than or equal to 101.5 degrees Fahrenheit, and additional compatible Ebola Virus Disease symptoms Patient denies exposure to infectious person Patient denies travel to an Ebola-affected area in the 21 days before illness onset No symptoms or risks identified at this time. ROS: 14:32 Constitutional: Negative for fever, chills, and weight loss, Eyes: Negative for injury, snw pain, redness, and discharge, ENT: Negative for injury, pain, and discharge, Neck: Negative for injury, pain, and swelling, Cardiovascular: Negative for chest pain, palpitations, and edema, Respiratory: Negative for shortness of breath, cough, wheezing, and pleuritic chest pain, Abdomen/GI: Negative for abdominal pain, nausea, vomiting, diarrhea, and constipation, : Negative for injury, bleeding, discharge, and swelling, MS/Extremity: Negative for injury and deformity, Skin: Negative for injury, rash, and discoloration, Neuro: Negative for headache, weakness, numbness, tingling, and seizure. 14:32 Back: Positive for pain at rest, pain with movement, of the right low back. Exam: 14:32 Constitutional: This is a well developed, well nourished patient who is awake, alert, snw and in no acute distress. Head/Face: Normocephalic, atraumatic. Eyes: Pupils equal round and reactive to light, extra-ocular motions intact. Lids and lashes normal. Conjunctiva and sclera are non-icteric and not injected. Cornea within normal limits. Periorbital areas with no swelling, redness, or edema. ENT: Nares patent. No nasal discharge, no septal abnormalities noted. Tympanic membranes are normal and external auditory canals are clear. Oropharynx with no redness, swelling, or masses, exudates, or evidence of obstruction, uvula midline. Mucous membranes moist. Neck: Trachea midline, no thyromegaly or masses palpated, and no cervical lymphadenopathy. Supple, full range of motion without nuchal rigidity, or vertebral point tenderness. No Meningismus. Chest/axilla: Normal chest wall appearance and motion. Nontender with no deformity. No lesions are appreciated. Cardiovascular: Regular rate and rhythm with a normal S1 and S2. No gallops, murmurs, or rubs. Normal PMI, no JVD. No pulse deficits. Respiratory: Lungs have equal breath sounds bilaterally, clear to auscultation and percussion. No rales, rhonchi or wheezes noted. No increased work of breathing, no retractions or nasal flaring. Abdomen/GI: Soft, non-tender, with normal bowel sounds. No distension or tympany. No guarding or rebound. No evidence of tenderness throughout. Back: No spinal tenderness. No costovertebral tenderness. Full range of motion. Skin: Warm, dry with normal turgor. Normal color with no rashes, no lesions, and no evidence of cellulitis. MS/ Extremity: Pulses equal, no cyanosis. Neurovascular intact. Full, normal range of motion. Neuro: Awake and alert, GCS 15, oriented to person, place, time, and situation. Cranial nerves II-XII grossly intact. Motor strength 5/5 in all extremities. Sensory grossly intact. Cerebellar exam normal. Normal gait. Psych: Awake, alert, with orientation to person, place and time. Behavior, mood, and affect are within normal limits. Vital Signs: 13:37 BP 109 / 54; Pulse 67; Resp 19; Temp 98.2; Pulse Ox 96% on R/A; Weight 72.57 kg; Height aj 5 ft. 9 in. (175.26 cm); 14:30 BP 110 / 52; Pulse 68; Resp 17; Pulse Ox 98% on R/A; Pain 6/10; sg 13:37 Body Mass Index 23.63 (72.57 kg, 175.26 cm) aj MDM: 14:05 Patient medically screened. snw 14:32 Data reviewed: vital signs, nurses notes. Data interpreted: Pulse oximetry: on room air snw is 96 %. Interpretation: acceptable. Counseling: I had a detailed discussion with the patient and/or guardian regarding: the historical points, exam findings, and any diagnostic results supporting the discharge/admit diagnosis, the need for outpatient follow up, to return to the emergency department if symptoms worsen or persist or if there are any questions or concerns that arise at home. ED course: pt rolling around on stretcher in no distress, moving legs freely, sneezed without pain. Administered Medications: 14:30 Drug: TORadol 30 mg Route: IM; Site: right ventrogluteal; sg 14:50 Follow up: Response: No adverse reaction; Pain is decreased; reports decrease in " sg pinching" sensation Disposition: 05/22 07:39 Co-signature as Attending Physician, Dannie Kang MD I agree with the assessment and kdr plan of care. Disposition: 05/21/19 14:30 Discharged to Home. Impression: Low back pain, Sciatica, right side. - Condition is Stable. - Discharge Instructions: Back Pain, Adult, Musculoskeletal Pain, Sciatica, Back Injury Prevention, [id number], Cryotherapy, Rehydration, Adult, Heat Therapy. - Prescriptions for Prednisone 20 mg Oral Tablet - take 2 tablet by ORAL route once daily for 5 days; 10 tablet. orphenadrine citrate 100 mg Oral Tablet Sustained Release - take 1 tablet by ORAL route 2 times per day As needed; 20 tablet. - Medication Reconciliation Form, Thank You Letter, Antibiotic Education, Prescription Opioid Use form. - Follow up: Private Physician; When: 2 - 3 days; Reason: Recheck today's complaints, Continuance of care, Re-evaluation by your physician. Follow up: Emergency Department; When: As needed; Reason: Worsening of condition. Signatures: Donovan Spangler RN RN sg Myers, Amanda, RN RN aj Rittger, Kevin, MD MD [facility] Shonda Carrero, STUDIO SET UP WORKER-C STUDIO SET UP WORKER-Csnw Corrections: (The following items were deleted from the chart) 05/21 14:51 14:30 05/21/2019 14:30 Discharged to Home. Impression: Low back pain; Sciatica, right sg side. Condition is Stable. Forms are Medication Reconciliation Form, Thank You Letter, Antibiotic Education, Prescription Opioid Use. Follow up: Private Physician; When: 2 - 3 days; Reason: Recheck today's complaints, Continuance of care, Re-evaluation by your physician. Follow up: Emergency Department; When: As needed; Reason: Worsening of condition. snw
[2019-05-21] MEDS ORDERED: KETOROLAC 30 MG/ML INJ ONE (14:51)
[2019-05-21 15:25] VITALS: BP 109/54; TEMP 98.2; O2SAT 96
== END 2019-05-21 14:51 | disposition home or self-care (01) ==
LOC: ER 13:29
DX: M54.31 Sciatica, right side (principal)
CPT/HCPCS: 96372; 99283

== ENCOUNTER 2019-09-08 11:05 | Emergency (ER) | payer SELFPAY ==
--- NOTE | 2019-09-08 11:41 | EDPHYS ---
Physician Documentation [facility] Name: Oren Norwood Age: 48 yrs Sex: Male : 1970 Arrival Date: 09/08/2019 Time: 11:08 Bed 12 Private MD: None, None ED Physician Bari Ray HPI: 09/08 11:38 This 48 yrs old Male presents to ER via Ambulatory with complaints of Urinary kb Problem. 11:38 The patient presents with urinary symptoms, dysuria, urinary frequency. Onset: The kb symptoms/episode began/occurred last week. Modifying factors: The symptoms are alleviated by nothing, the symptoms are aggravated by urinating. Associated signs and symptoms: Pertinent positives: dysuria. Severity of symptoms: At their worst the symptoms were moderate, in the emergency department the symptoms are unchanged. The patient has not experienced similar symptoms in the past. The patient has not recently seen a physician. Pt reports dysuria and frequency with history of UTI so he wanted to get checked for that. Also suspicious that is cheating so wants the treatment for STDs as well.. Historical: - Allergies: 11:19 No Known Allergies; aj1 - Home Meds: 11:19 None [Active]; aj1 - PMHx: 11:19 chronic back pain; aj1 - PSHx: 11:19 Hernia repair; Appendectomy; aj1 - Immunization history:: Flu vaccine is not up to date. - Social history:: Smoking status: Patient/guardian denies using tobacco. - Ebola Screening: : Patient denies travel to an Ebola-affected area in the 21 days before illness onset. ROS: 11:38 Constitutional: Negative for fever, chills, and weight loss, Cardiovascular: Negative kb for chest pain, palpitations, and edema, Respiratory: Negative for shortness of breath, cough, wheezing, and pleuritic chest pain, Abdomen/GI: Negative for abdominal pain, nausea, vomiting, diarrhea, and constipation, Back: Negative for injury and pain, MS/Extremity: Negative for injury and deformity, Skin: Negative for injury, rash, and discoloration, Neuro: Negative for headache, weakness, numbness, tingling, and seizure. 11:38 : Positive for urinary symptoms, urinary frequency, burning with urination. Exam: 11:38 Constitutional: This is a well developed, well nourished patient who is awake, alert, kb and in no acute distress. Head/Face: Normocephalic, atraumatic. ENT: Nares patent. No nasal discharge, no septal abnormalities noted. Tympanic membranes are normal and external auditory canals are clear. Oropharynx with no redness, swelling, or masses, exudates, or evidence of obstruction, uvula midline. Mucous membranes moist. Neck: Trachea midline, no thyromegaly or masses palpated, and no cervical lymphadenopathy. Supple, full range of motion without nuchal rigidity, or vertebral point tenderness. No Meningismus. Chest/axilla: Normal chest wall appearance and motion. Nontender with no deformity. No lesions are appreciated. Cardiovascular: Regular rate and rhythm with a normal S1 and S2. No gallops, murmurs, or rubs. Normal PMI, no JVD. No pulse deficits. Respiratory: Lungs have equal breath sounds bilaterally, clear to auscultation and percussion. No rales, rhonchi or wheezes noted. No increased work of breathing, no retractions or nasal flaring. Abdomen/GI: Soft, non-tender, with normal bowel sounds. No distension or tympany. No guarding or rebound. No evidence of tenderness throughout. Skin: Warm, dry with normal turgor. Normal color with no rashes, no lesions, and no evidence of cellulitis. MS/ Extremity: Pulses equal, no cyanosis. Neurovascular intact. Full, normal range of motion. Neuro: Awake and alert, GCS 15, oriented to person, place, time, and situation. Cranial nerves II-XII grossly intact. Motor strength 5/5 in all extremities. Sensory grossly intact. Cerebellar exam normal. Normal gait. Vital Signs: 11:19 BP 118 / 73; Pulse 71; Resp 18; Temp 97.5; Pulse Ox 98% on R/A; Weight 72.57 kg (R); aj1 Height 5 ft. 9 in. (175.26 cm) (R); Pain 0/10; 11:19 Body Mass Index 23.63 (72.57 kg, 175.26 cm) aj1 MDM: 11:22 Patient medically screened. kb 11:40 Data reviewed: vital signs, nurses notes. Data interpreted: Pulse oximetry: on room air kb is 98 %. Interpretation: normal. Counseling: I had a detailed discussion with the patient and/or guardian regarding: the historical points, exam findings, and any diagnostic results supporting the discharge/admit diagnosis, lab results, the need for outpatient follow up, a family practitioner, to return to the emergency department if symptoms worsen or persist or if there are any questions or concerns that arise at home. 09/08 11:35 Order name: Urine Dipstick--Ancillary (enter results) kb 09/08 11:24 Order name: Urine Dipstick-Ancillary (obtain specimen); Complete Time: 11:34 kb Administered Medications: 11:55 Drug: Rocephin (cefTRIAXone) 250 mg Route: IM; Site: left gluteus; aa5 12:15 Follow up: Response: No adverse reaction aa5 12:15 Follow up: Response: No adverse reaction aa5 11:55 Drug: Zithromax 1 grams Route: PO; aa5 12:15 Follow up: Response: No adverse reaction aa5 Disposition: 09/08/19 11:41 Discharged to Home. Impression: Dysuria. - Condition is Stable. - Discharge Instructions: Dysuria. - Medication Reconciliation Form, Thank You Letter, Antibiotic Education, Prescription Opioid Use form. - Follow up: Emergency Department; When: As needed; Reason: Worsening of condition. Follow up: Private Physician; When: 2 - 3 days; Reason: Recheck today's complaints, Continuance of care, Re-evaluation by your physician. Addendum: 09/11/2019 06:44 Co-signature as Attending Physician, Bari Ray MD I agree with the assessment and c esteves plan of care. Signatures: Dispatcher [employer] Hanane Galeas, LORIE-C PIECER UP-Ckb Emily Tucker, RN RN aj1 Bari Ray MD MD cha Calderon, Audri, RN RN aa5 Gus Gibson RN RN la1 Corrections: (The following items were deleted from the chart) 09/08 12:02 11:41 09/08/2019 11:41 Discharged to Home. Impression: Dysuria. Condition is Stable. la1 Forms are Medication Reconciliation Form, Thank You Letter, Antibiotic Education, Prescription Opioid Use. Follow up: Emergency Department; When: As needed; Reason: Worsening of condition. Follow up: Private Physician; When: 2 - 3 days; Reason: Recheck today's complaints, Continuance of care, Re-evaluation by your physician. kb
--- NOTE | 2019-09-08 11:41 | ER ---
Nurse's Notes [facility] Name: Oren Norwood Age: 48 yrs Sex: Male : 1970 Arrival Date: 09/08/2019 Time: 11:08 Bed 12 Private MD: None, None Diagnosis: Dysuria Presentation: 09/08 11:17 Presenting complaint: Patient states: "I've been peeing way too much and I've always aj1 had issues with urinary tract infections. And I suspect that my is having an affair so I want to make sure its nothing else" Denies fever. Transition of care: patient was not received from another setting of care. Onset of symptoms was 2018. Risk Assessment: Do you want to hurt yourself or someone else? Patient reports no desire to harm self or others. Initial Sepsis Screen: Does the patient meet any 2 criteria? No. Patient's initial sepsis screen is negative. Does the patient have a suspected source of infection? Yes: Dysuria/Frequency/Urgency/UTI. Care prior to arrival: None. 11:17 Method Of Arrival: Ambulatory [facility] 11:17 Acuity: FAVIAN 4 aj1 Triage Assessment: 11:19 General: Appears in no apparent distress. comfortable, Behavior is calm, cooperative, aj1 appropriate for age. Pain: Denies pain. EENT: No signs and/or symptoms were reported regarding the EENT system. Neuro: Level of Consciousness is awake, alert, obeys commands, Oriented to person, place, time, situation. Cardiovascular: Patient's skin is warm and dry. Respiratory: Airway is patent Respiratory effort is even, unlabored, Respiratory pattern is regular, symmetrical. GI: No signs and/or symptoms were reported involving the gastrointestinal system. : Reports urinary frequency. Derm: No signs and/or symptoms reported regarding the dermatologic system. Skin is pink, warm \\T\\ dry. normal. Musculoskeletal: No signs and/or symptoms reported regarding the musculoskeletal system. Circulation, motion, and sensation intact. Historical: - Allergies: : No Known Allergies; aj1 - Home Meds: : None [Active]; aj1 - PMHx: 11:19 chronic back pain; aj1 - PSHx: 11:19 Hernia repair; Appendectomy; aj1 - Immunization history:: Flu vaccine is not up to date. - Social history:: Smoking status: Patient/guardian denies using tobacco. - Ebola Screening: : Patient denies travel to an Ebola-affected area in the 21 days before illness onset. Screenin:20 Abuse screen: Denies threats or abuse. Denies injuries from another. Nutritional aj1 screening: No deficits noted. Tuberculosis screening: No symptoms or risk factors identified. Fall Risk None identified. Assessment: 11:20 Reassessment: see triage assessment. aj1 11:30 General: Appears comfortable, Behavior is calm, cooperative. Pain: Denies pain. Neuro: aa5 Level of Consciousness is awake, alert, obeys commands, Oriented to person, place, time, situation. Cardiovascular: Heart tones S1 S2 present Rhythm is regular. Respiratory: Airway is patent Respiratory effort is even, unlabored, Respiratory pattern is regular, symmetrical. GI: No signs and/or symptoms were reported involving the gastrointestinal system. : Reports urinary frequency, reports irritation to penis. EENT: No signs and/or symptoms were reported regarding the EENT system. Derm: Skin is pink, warm \\T\\ dry. Musculoskeletal: Range of motion: intact in all extremities. 12:14 Reassessment: Patient is alert, oriented x 3, equal unlabored respirations, skin aa5 warm/dry/pink. Vital Signs: 11:19 BP 118 / 73; Pulse 71; Resp 18; Temp 97.5; Pulse Ox 98% on R/A; Weight 72.57 kg (R); aj1 Height 5 ft. 9 in. (175.26 cm) (R); Pain 0/10; 11:19 Body Mass Index 23.63 (72.57 kg, 175.26 cm) aj1 ED Course: 11:08 Patient arrived in ED. ds1 11:08 None, None is Private Physician. ds1 11:09 [facility] kb 11:09 Bari Ray MD is Attending Physician. kb 11:18 Triage completed. aj1 11:19 Arm band placed on Patient placed in an exam room. aj1 11:20 Patient has correct armband on for positive identification. aj1 11:20 No provider procedures requiring assistance completed. aj1 11:34 Eli Wolff, RN is Primary Nurse. aa5 12:15 Patient did not have IV access during this emergency room visit. aa5 Administered Medications: 11:55 Drug: Rocephin (cefTRIAXone) 250 mg Route: IM; Site: left gluteus; aa5 12:15 Follow up: Response: No adverse reaction aa5 12:15 Follow up: Response: No adverse reaction aa5 11:55 Drug: Zithromax 1 grams Route: PO; aa5 12:15 Follow up: Response: No adverse reaction aa5 Outcome: 11:41 Discharge ordered by MD. chu 12:14 Discharged to home ambulatory. aa5 12:14 Condition: stable 12:14 Discharge instructions given to patient, Instructed on discharge instructions, follow up and referral plans. Demonstrated understanding of instructions, follow-up care. 12:15 Patient left the ED. aa5 Signatures: Hanane Olson, MANAGER RFID-C MANAGER RFID-Ckb Emily Tucker RN RN aj1 Sonia Beltran ds1 Eli Wolff RN RN aa5 Gus Gibson RN RN la1 Corrections: (The following items were deleted from the chart) 13:01 12:02 Patient left the ED. la1 aa5
[2019-09-08] MEDS ORDERED: LIDOCAINE 1% MPF 5 ML VIAL ONE (11:52)
[2019-09-08] MEDS ORDERED: AZITHROMYCIN 250 MG TAB ONE (11:52)
[2019-09-08] MEDS ORDERED: CEFTRIAXONE 250 MG/VIAL ONE (11:52)
[2019-09-08 12:25] LABS: Urine Blood NEGATIVE (NEG); Urine Glucose NEGATIVE (NEG); Urine Protein NEGATIVE (NEG); Urine Specific Gravity 1.015 (1.005-1.030)
[2019-09-08 15:12] VITALS: BP 118/73; TEMP 97.5; O2SAT 98
== END 2019-09-08 12:02 | disposition home or self-care (01) ==
LOC: ER 11:05
DX: R30.0 Dysuria (principal)
CPT/HCPCS: 81003; 96372; 99283; J0696